=== PATIENT | male | born 1995 | race African-American/Black ===

== ENCOUNTER 2017-07-29 19:10 | Emergency (ER) | payer OTHER ==
[~2017-07-29] VITALS: Ht 170.2 cm; Wt 57.9 kg
[2017-07-29] MEDS ORDERED: NAPROSYN500 MG PO (21:58)
[2017-07-29] MEDS ORDERED: SKELAXIN800 MG PO (21:58)
[2017-07-29 22:08] VITALS: BP 138/77
== END 2017-07-29 22:09 | disposition home or self-care (01) ==
LOC: EME 19:10
DX: S16.1XXA Strain of muscle, fascia and tendon at neck level, initial encounter (principal); S80.01XA Contusion of right knee, initial encounter; V47.1XXA Car passenger injured in collision with fixed or stationary object in nontraffic accident, initial encounter; Y92.410 Unspecified street and highway as the place of occurrence of the external cause
CPT/HCPCS: 72050; 73564; 99281; 99284